=== PATIENT | female | born 1945 | race Caucasian/White ===

== ENCOUNTER → 2017-09-03 16:44 | Outpatient (CLI) | payer MEDICARE, BC | END | disposition home or self-care (01) | LOC: D.MAMMO 13:00 | DX: Z12.31 Encounter for screening mammogram for malignant neoplasm of breast (principal) ==

== ENCOUNTER 2019-03-22 08:00 | Outpatient (CLI) | payer MEDICARE, BC | END 2019-03-22 09:00 | disposition home or self-care (01) | LOC: D.MAMMO 08:00 | PROVIDERS: ATTEND Family Medicine | DX: Z12.31 Encounter for screening mammogram for malignant neoplasm of breast (principal) ==

== ENCOUNTER 2019-07-15 15:17 | Observation (INO) | payer MEDICARE, BC ==
[~2019-07-15] VITALS: Ht 170.2 cm; Wt 86.1 kg
--- NOTE | 2019-07-15 15:32 | NUR ---
TRANSFERED FROM ADMISSIONS BY W/C. OREINTED TO ROOM. CALL LIGHT IN REACH. WILL CONT. PLAN OF CARE.
[2019-07-15] MEDS ORDERED: ALBUTEROL SULF8.5 GM INH (15:48)
[2019-07-15 15:55] VITALS: BP 121/70; BMI 29.8
[2019-07-15 16:05] VITALS: BP 124/70
[2019-07-15 16:23] LABS: BASOPHILS 0.2 % (0-2); EOSINOPHILS 1.7 % (0-7); HEMATOCRIT 38.6 % (36.0-48.0); HEMOGLOBIN 13.4 g/dL (12-16); LYMPHOCYTES 36.6 % (15-50); MCH 30.8 pg (26.0-34.0); MCHC 34.7 g/dL (31.0-37.0); MCV 88.7 fL (80.0-100.0); MEAN PLATELET VOLUME 9.2 fL (7.4-10.4); MONOCYTES 7.7 % (2-11); NEUTROPHILS 53.8 % (40-80); PLATELET COUNT 192 10x3/uL (130-400); RBC 4.35 10x6/uL (4.00-5.40); WBC 6.3 10x3/uL (4.8-10.8)
--- NOTE | 2019-07-15 16:33 | NUR ---
IV STARTED BY BUFFY LUGO WITH 22 GAUGE CATH X 1 STICK AND FLUSHED WITH NS. LINE IS PATENT.
[2019-07-15 16:40] LABS: ALBUMIN 3.3 g/dL (3.4-5.0); ALKALINE PHOSPHATASE 63 U/L (46-116); ALT (SGPT) 25 U/L (10-68); BILIRUBIN - TOTAL 0.63 mg/dL (0.2-1.3); CALC OSMOLALITY 287 mosm/kg (275-300); CALCIUM 8.8 mg/dL (8.5-10.1); CARBON DIOXIDE 29.6 mmol/L (21.0-32.0); CHLORIDE - SERUM 106 mmol/L (98-107); CREATININE - SERUM 0.6 mg/dL (0.6-1.3); GLUCOSE 101 mg/dL (74-106); POTASSIUM - SERUM 3.7 mmol/L (3.5-5.1); PROTEIN - SERUM 6.6 g/dL (6.4-8.2); SODIUM 144 mmol/L (136-145); UREA NITROGEN 16 mg/dL (7-18); eGFR NON AFRICAN AMERICAN > 90 mL/min (90-120)
[2019-07-15 17:16] LABS: CREATINE KINASE 227 UL (21-215); TROPONIN-I < 0.017 ng/mL (0.000-0.060)
[2019-07-15 17:21] LABS: APTT 26.8 SECONDS (22.8-39.4); INR 1.01 (0.85-1.17); PROTIME 12.8 SECONDS (11.6-15.0)
--- NOTE | 2019-07-15 17:40 | NUR ---
SCDS ON, EKG COMPLETED.
[2019-07-15 18:29] LABS: CKMB 5.3 U/L (0.0-3.6)
[2019-07-15 20:00] VITALS: BP 120/55
[2019-07-16] VITALS: BP 128/61
[2019-07-16 01:44] LABS: BASOPHILS 0.3 % (0-2); EOSINOPHILS 2.5 % (0-7); HEMATOCRIT 38.3 % (36.0-48.0); HEMOGLOBIN 13.3 g/dL (12-16); IMMATURE GRANULOCYTES 0.2 % (0-5); LYMPHOCYTES 44.1 % (15-50); MCH 30.7 pg (26.0-34.0); MCHC 34.7 g/dL (31.0-37.0); MCV 88.5 fL (80.0-100.0); MEAN PLATELET VOLUME 9.4 fL (7.4-10.4); MONOCYTES 10.4 % (2-11); NEUTROPHILS 42.5 % (40-80); PLATELET COUNT 173 10x3/uL (130-400); RBC 4.33 10x6/uL (4.00-5.40); WBC 6.1 10x3/uL (4.8-10.8)
[2019-07-16 02:11] LABS: ALBUMIN 3.1 g/dL (3.4-5.0); ALKALINE PHOSPHATASE 59 U/L (46-116); ALT (SGPT) 22 U/L (10-68); BILIRUBIN - TOTAL 0.68 mg/dL (0.2-1.3); CALC OSMOLALITY 289 mosm/kg (275-300); CARBON DIOXIDE 30.7 mmol/L (21.0-32.0); CHLORIDE - SERUM 108 mmol/L (98-107); CKMB 3.8 U/L (0.0-3.6); CREATINE KINASE 194 UL (21-215); CREATININE - SERUM 0.6 mg/dL (0.6-1.3); GLUCOSE 96 mg/dL (74-106); PROTEIN - SERUM 6.2 g/dL (6.4-8.2); SODIUM 145 mmol/L (136-145); UREA NITROGEN 16 mg/dL (7-18); eGFR NON AFRICAN AMERICAN > 90 mL/min (90-120)
[2019-07-16 02:14] LABS: TROPONIN-I < 0.017 ng/mL (0.000-0.060)
[2019-07-16 04:00] VITALS: BP 114/57
[2019-07-16 08:37] VITALS: BP 157/63
[2019-07-16 09:26] LABS: CKMB 4.2 U/L (0.0-3.6); CREATINE KINASE 188 UL (21-215); TROPONIN-I < 0.017 ng/mL (0.000-0.060)
--- NOTE | 2019-07-16 10:00 | NUR ---
TELEMETRY SR. UP AMBULATING HALLWAY WITH AT SIDE. GAIT STEADY.
[2019-07-16 12:14] VITALS: Ht 170.2 cm; Wt 86.1 kg
[2019-07-16 12:25] VITALS: BP 120/66
[2019-07-16 15:31] VITALS: BP 120/59
--- NOTE | 2019-07-16 16:13 | NUR ---
IV AND TELEMETRY DCD. DC PLANS GIVEN. UNDERSTANDING VOICED. ESCORTED TO CAR BY W/C.
--- NOTE | 2019-07-19 07:56 | MORECARE ---
CASE MANAGEMENT DISCHARGE SUMMARY PATIENT: MAXIMUS HERNANDEZ UNIT: [id number] ADM DATE: 07/15/19 AGE: 73 : [birth year] SEX: F ROOM/BED: D.6549 AUTHOR: CHANEL RAMACHANDRAN PHYSICIAN: REFERRING PHYSICIAN: STEVEN JONES MD DATE OF SERVICE: 07/19/19 Discharge Plan Patient Name: MAXIMUS HERNANDEZ Facility: [facility]:[place] : 1945 Planned Disposition: Home Anticipated Discharge Date: 07/16/19 Discharge Date: 07/16/2019 Expected LOS: 1 Initial Reviewer: [email or web address] Initial Review Date: 07/19/2019 Generated: 07/19/19 8:56 am Coverage Notice Reviewer: [email or web address] Jasiel Borden Notice Issued Date-Time: 07/16/2019 14:49 Notice Type: Medicare Outpatient Observation Notice Notice Delivered To: Patient Relationship to Patient: Self Concrete Gun Operator Name: Delivery Method: HAND - Hand Delivered Araceli Days: Prior Verbal Notification: Recipient Understood Notice: Yes Recipient Signature: Yes Med Rec Note Co-signed by Attending: Coverage Notice Comment: Patient Name: MAXIMUS HERNANDEZ Page [phone] at 0756 All edits/amendments must be made on the electronic document DICTATION DATE: 07/19/19 0755 DETECTIVE CAPTAIN: JOHN PAUL 07/19/19 0755 RPT#: [id number] DC DATE:07/16/19 STATUS: DIS IN [id number] [place] [address] END OF REPORT
--- NOTE | 2019-07-21 14:31 | EC ---
PATIENT:MAXIMUS HERNANDEZ DATE OF SERVICE: 07/15/19 SEX: F MEDICAL RECORD: [id number] DATE OF : [birth year] LOCATION:D.M2 D.211 AGE OF PATIENT: 73 ADMISSION DATE: 07/15/19 REFERRING PHYSICIAN: INTERPRETING PHYSICIAN: ALFREDO CLEMENTE MD ECHOCARDIOGRAM REPORT ECHO CHARGES 4 ECHO COMPLETE Date: 07/16/19 CLINICAL DIAGNOSIS: DYSPNEA ECHOCARDIOGRAPHIC MEASUREMENTS (adult normal given) AC root (d.<3.7cm) 3.9 cm LV Septum d (<1.2 cm> 1.6 cm Valve Excursion 1.7 cm LV Septum (systole) 1.8 cm Left Atria (s.<4.0cm> 3.8 cm LVPW d(<1.2cm) 1.5 cm RV (d.<2.3cm) 3.3 cm LVPW (sytole) 1.8 cm LV diastole(<5.6CM) 3.9 cm MV E-F(>70mm/sec) cm LV systole 2.6 cm LVOT Diameter 1.8 cm MV exc.(>10mm) 1.5 cm Est.ejection fraction (50-75%) % DOPPLER: LVIT cm/sec A 82.0 cm/sec E 52.0 cm/sec LA cm/sec RVSP 32 mmHg LVOT 82 cm/sec AOP1/2T m/s Asc. Ao 101 cm/sec RVOT 72 cm/sec RA cm/sec PA cm/sec AV Gradient Peak 4.06 mmHg AV Mean 2.40 mmHg AV Area 1.9 cm MV Gradient Peak 3.05 mmHg MV Mean 1.18 mmHg MV Area cm COMMENTS: Armored Car Messenger: Giovana WHITESIDE Kettle Room Helper: 1 Dr. Clemente TAPE# PACS Pericardial Effusion N DATE OF SERVICE: 07/16/2019 ECHOCARDIOGRAM DATE OF SERVICE: 07/16/2019 FINDINGS: 1. Left ventricular chamber size is within normal limits. Left ventricular systolic function is normal at 60% to 65%. 2. Left atrium, right atrium, and right ventricular chamber sizes are within ECHOCARDIOGRAM REPORT [id number] MAXIMUS HERNANDEZ normal limits. 3. Valvular structures have normal structure and motion. 4. Doppler interrogation reveals trace tricuspid regurgitation, no other valvular insufficiency or stenosis. Pulmonary systolic pressure is estimated at 32 mmHg. 5. No evidence of pericardial effusion or left ventricular thrombus. TRANSINT:[id number] Voice Confirmation ID: [id number] DOCUMENT ID: [id number] ALFREDO CLEMENTE MD at 1431 CC: [id number] DICTATION DATE: 07/16/19 1114 DARK ROOM ATTENDANT: 07/16/19 1155 DIS IN 07/16/19 [facility] [address] [id number]
--- NOTE | 2019-07-21 14:31 | CN ---
PATIENT NAME:MAXIMUS HERNANDEZ MEDICAL RECORD: [id number] : [birth year] LOCATION[place]– [place] D.2115 ADMIT DATE: 07/15/19 ACCOUNT: [id number] CONSULTING PHYSICIAN: ALFREDO MIDDLETON MD REFERRING PHYSICIAN: STEVEN JONES MD DATE OF CONSULTATION: 07/16/2019 CARDIOLOGY CONSULTATION DATE OF SERVICE: 07/16/2019 DIAGNOSES: Shortness of breath, dyspnea on exertion. HISTORY OF PRESENT ILLNESS: Mrs. Hernandez had an abrupt onset of shortness of breath, dyspnea on exertion. No chest discomfort. This happened yesterday. She has had this in the past. She has a history of asthma. She takes an inhaler. She used her inhaler, did not seem to help this much; however, overnight this has dissipated. She has had no further episodes of shortness of breath, dyspnea on exertion. She has had no chest pain. Her EKG is with no ST-T abnormalities. Troponins are normal. She has no cardiac history in the past. She does have a family history of coronary artery disease. PHYSICAL EXAMINATION: CONSTITUTIONAL/GENERAL APPEARANCE: Well nourished, well developed, appears stated age. EYES: Lids and conjunctivae noninjected. No discharge. No pallor. ENT: Lips within normal limit. No cyanosis. No pallor. NECK: Carotid arteries, bilateral normal upstroke. No bruits. No thrills. No jugular venous pressure or distention. CERVICAL LYMPH NODES: Nontender. Nonenlarged. THYROID: Not enlarged. No nodules. CARDIOVASCULAR: Precordial exam, nondisplaced. No heaves or pericardial thrills. Rate and rhythm, regular. Heart sounds, normal S1, normal S2. No S3, no gallop, no rub. Systolic murmur, not heard. Diastolic murmur, not heard. RESPIRATORY: Respiratory effort, unlabored. Normal curvature. No thoracic deformity. No chest wall tenderness. Percussion, resonant. Auscultation, clear. No wheezes, no rales, no rhonchi. ABDOMEN: Soft, nondistended, nontender. No abdominal pain, no vomiting and normal appetite. MUSCULOSKELETAL: No joint tenderness, normal gait, normal tone. SKIN: Warm and dry. OVERALL IMPRESSION: Shortness of breath, very well may have been her asthma, very well may be a cardiac anginal equivalent. At this time, all of her objective information is normal from a cardiac standpoint. We will get an echocardiogram to get her overall left ventricular function, set her up as a stress test as an outpatient. TRANSINT:[id number] Voice Confirmation ID: [id number] DOCUMENT ID: [id number] CONSULT REPORT [id number] MAXIMUS HERNANDEZ JEFFREY MD at 1431 CC: [id number] DICTATION DATE: 07/16/19 1213 DATA PROCESSOR: 07/16/19 1222 DIS IN 07/16/19 [facility] [address] [place] [address]
== END 2019-07-16 16:13 | disposition home or self-care (01) ==
LOC: D.M2 15:17 → OBSVTIME 15:18 → D.M2 07-16 16:13
PROVIDERS: Family Medicine; ADMIT Family Medicine Adult Medicine; ATTEND Family Medicine Adult Medicine
DX: I20.9 Angina pectoris, unspecified (principal); J45.909 Unspecified asthma, uncomplicated; M19.90 Unspecified osteoarthritis, unspecified site; R06.02 Shortness of breath

== ENCOUNTER → 2019-07-21 10:01 | Outpatient (CLI) | payer MEDICARE, BC ==
[2019-07-16 12:14] VITALS: BMI 29.8
--- NOTE | ~2019-07-21 | ST ---
PATIENT:MAXIMUS HERNANDEZ MEDICAL RECORD: [id number] SEX: F LOCATION:[facility] ORDER #: ADMISSION DATE: 07/21/19 AGE OF PATIENT: 73 REFERRING PHYSICIAN: INTERPRETING PHYSICIAN: ALFREDO MIDDLETON MD DATE OF SERVICE: 07/21/2019 PROCEDURE: Nuclear stress test. INDICATION: Angina, palpitation, history of coronary artery disease, and hypertension. She was exercised on standard Lexiscan protocol with 27 mCi of sestamibi injected at peak stress, 9 mCi used previously for rest images. FINDINGS: Gated SPECT reveals preserved ejection fraction at 74% with good wall motion and thickening and brightening throughout all segments. SPECT imaging Cardiolite was used as myocardial fusion agent. There is homogeneous uptake throughout all segments at rest and stress with no evidence of inducible ischemia or previous infarction. OVERALL IMPRESSION: 1. This is a normal nuclear stress test with no evidence of inducible ischemia or previous infarction. 2. Gated SPECT reveals a preserved ejection fraction at 74%. In this patient with ongoing symptomatology, the current scan does not suggest the presence of hemodynamically significant coronary artery disease. Evaluate noncardiac etiology of chest pain. TRANSINT:[id number] Voice Confirmation ID: [id number] DOCUMENT ID: [id number] ALFREDO MIDDLETON MD CC: PARTHA LEE MD [id number] DICTATION DATE: 07/27/19 1720 WEB ANALYTICS DEVELOPER: 07/28/19 0105 DEP CLI 07/21/19 [address] [place] [address]
[~2019-07-21 10:01] MED LIST: ALBUTEROL SULF8.5 GM INH
== END | disposition home or self-care (01) ==
LOC: D.HCCARDIO 10:01
PROVIDERS: ATTEND Internal Medicine Interventional Cardiology
DX: R00.2 Palpitations (principal)

== ENCOUNTER 2020-06-30 18:24 | Outpatient (CLI) | payer MEDICARE, BC ==
[2019-07-16 12:14] VITALS: BMI 29.8
== END 2020-06-30 23:59 | disposition home or self-care (01) ==
LOC: D.MAMMO 18:24
PROVIDERS: ATTEND Family Medicine
DX: Z12.31 Encounter for screening mammogram for malignant neoplasm of breast (principal)